=== PATIENT | male | born 1935 | race Caucasian/White ===

== ENCOUNTER 2017-01-04 19:21 | Emergency (ER) | payer MEDICARE ==
[2017-01-04 20:13] VITALS: BP 129/70
--- NOTE | 2017-01-04 20:41 | UC ---
Truncal Trauma HPI - HPI Summary HPI Summary: fall today when running up the driveway to get out of the rain, x 2 hours ago. He has pain in the left ribs with inspiration, elbow abrasion, soreness in back and ribs. Given ibuprofen by his , 600mg (generally avoids due to coumadin) . - History Of Current Complaint Chief Complaint: UCUpperExtremity Stated Complaint: FALL-LFT ELBOW/POSS RIB INJURY Time Seen by Provider: 01/04/17 20:26 Hx Obtained From: Patient, Family/Sanitor - here with his . 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 Cardiovascular: Other - controlled a fib, regular checks of inr with Dr. Lambert. Neurological: Negative All Other Systems Reviewed And Are Negative: Yes Physical Exam Triage Information Reviewed: Yes Appearance: Pain Distress - mild to moderate; antalgic gait, Obese Vital Signs: Initial Vital Signs Temp 98.2 F 01/04/17 20:04 Pulse 70 01/04/17 20:04 Resp 18 01/04/17 20:04 BP 129/70 01/04/17 20:04 Pulse Ox 99 01/04/17 20:04 Vital Signs Reviewed: Yes Eyes: Positive: Conjunctiva Clear ENT: Positive: Pharynx normal Neck: Positive: Supple, Nontender Respiratory: Positive: Lungs clear, Normal breath sounds Cardiovascular: Positive: RRR, No Murmur Abdominal Exam: Other - obese abdominal wall Abdomen Description: Positive: Soft Bowel Sounds: Positive: Present Musculoskeletal: Positive: ROM Intact, Other: - has right wrist nodule (chronic) --full rom. Tender in left rib cage, ribs 8 and 9, in the mid clavicular line. Neurological: Positive: Alert, Muscle Tone Normal Psychological Exam: Other - memory impairment, defers to his spouse to respond to questions. Skin Exam: Other - ecchymosis right forearm (old) Diagnostics - Laboratory Diagnostic Studies Completed/Ordered: rib views negative for fracture per MH; will review radiology read. Re-Evaluation - Re-Evaluation First Eval Re-Evaluation Time: 21:30 - smiling and chatting, no acute distress Change: Unchanged Truncal Trauma Course/Dx - Course Course Of Treatment: acetaminophen for pain, observation. - Differential Dx/Diagnosis Differential Diagnosis/HQI/PQRI: Chest Wall Contusion, Rib Fracture, Other - abrasions Provider Diagnoses: chest wall contusion. left elbow abrasion. Discharge - Discharge Plan Condition: Stable Disposition: HOME Patient Education Materials: Contusion in Adults (ED) Additional Instructions: Observe for any increasing pain or breathlessness. If these develop, please go to the emergency room Use acetaminophen for pain, 1000mg ever 8 hours as needed. Be cautious with additional ibuprofen due to the use of coumadin--it gives an increased bleeding risk.
--- NOTE | 2017-01-04 21:54 | RAD ---
Indication: Left rib pain. 3 views of left ribs demonstrates no fracture. No other bone or joint abnormality is identified. IMPRESSION: No fracture of the left ribs is noted.
== END 2017-01-04 21:58 | disposition home or self-care (01) ==
LOC: UCCORT 19:21
DX: S20.219A Contusion of unspecified front wall of thorax, initial encounter (principal); S50.312A Abrasion of left elbow, initial encounter; W18.30XA Fall on same level, unspecified, initial encounter; Y93.02 Activity, running; Y92.412 Parkway as the place of occurrence of the external cause; R73.03 Prediabetes; I10 Essential (primary) hypertension; I48.91 Unspecified atrial fibrillation; Z79.01 Long term (current) use of anticoagulants; Z96.651 Presence of right artificial knee joint; E66.9 Obesity, unspecified
CPT/HCPCS: 99212; G0463

== ENCOUNTER 2017-12-22 13:13 | Emergency (ER) | payer MEDICARE ==
[2017-12-22 14:28] VITALS: BP 132/81
--- NOTE | 2017-12-22 15:16 | UC ---
Respiratory Complaint HPI - HPI Summary HPI Summary: Cough x 4 days with wheezing. Congestion and low grade fever. - History of Current Complaint Chief Complaint: UCRespiratory Stated Complaint: COUGH Time Seen by Provider: 12/22/17 15:08 Hx Obtained From: Patient Onset/Duration: Sudden Onset, Lasting Days - 4, Still Present Timing: Constant Severity Initially: Moderate Severity Currently: Moderate Pain Intensity: 0 Character: Cough: Nonproductive Aggravating Factors: Deep Breaths, Recumbent Position Alleviating Factors: Nothing Associated Signs And Symptoms: Positive: Wheezing, URI, Nasal Congestion, Hoarseness. Negative: Fever, Sinus Discomfort - Allergies/Home Medications Allergies/Adverse Reactions: Allergies Allergy/AdvReac Type Severity Reaction Status Date / Time No Known Allergies Allergy Verified 12/22/17 14:30 Home Medications: Home Medications Antidiabetic Med 1 tab PO QAM 12/22/17 [History Confirmed 12/22/17] Med For Memory 2 tab PO QPM 12/22/17 [History Confirmed 12/22/17] PMH/Surg Hx/FS Hx/Imm Hx Endocrine History: Dyslipidemia Cardiovascular History: Hypertension, Atrial Fibrillation - Surgical History Surgical History: Yes Surgery Procedure, Year, and Place: hernia abdomen, right knee replacement - Family History Known Family History: Negative: Cardiac Disease, Diabetes - Social History Occupation: Retired Lives: With Family Alcohol Use: Rare Substance Use Type: None Smoking Status (MU): Never Smoked Tobacco Have You Smoked in the Last Year: No Review of Systems Respiratory: Shortness Of Breath, Cough Is Patient Immunocompromised?: No All Other Systems Reviewed And Are Negative: Yes Physical Exam Triage Information Reviewed: Yes Appearance: No Pain Distress, Well-Nourished, Ill-Appearing - mild Vital Signs: Initial Vital Signs Temp 99.2 F 12/22/17 14:21 Pulse 75 12/22/17 14:21 Resp 18 12/22/17 14:21 BP 132/81 12/22/17 14:21 Pulse Ox 98 12/22/17 14:21 Vital Signs Reviewed: Yes Eyes: Positive: Conjunctiva Clear ENT: Positive: Pharynx normal, TMs normal Neck exam: Normal Respiratory: Positive: Wheezing - expiratory wheeze with forced expiration. Cardiovascular Exam: Normal Musculoskeletal: Positive: Strength Limited @ - with walking, antalgic gait Neurological Exam: Normal Psychological Exam: Normal Skin Exam: Normal UC Diagnostic Evaluation - Laboratory O2 Sat by Pulse Oximetry: 98 Respiratory Course/Dx - Differential Dx/Diagnosis Differential Diagnosis/HQI/PQRI: Asthma, Lower Resp Infection, Sinusitis Provider Diagnoses: Acute URI. Acute bronchospasm Discharge - Sign-Out/Discharge Documenting (check all that apply): Discharge/Admit/Transfer - Discharge Plan Condition: Stable Disposition: HOME Prescriptions: predniSONE TAB* [Deltasone TAB*] 20 mg PO DAILY #18 tab Patient Education Materials: Upper Respiratory Infection (ED), Wheezing (ED), Prednisone (By mouth) Referrals: Corona Rosenberg MD [Primary Care Provider] - - Billing Disposition and Condition Condition: STABLE Disposition: HOME
== END 2017-12-22 15:50 | disposition home or self-care (01) ==
LOC: UCCORT 13:13
DX: J06.9 Acute upper respiratory infection, unspecified (principal); J98.01 Acute bronchospasm
CPT/HCPCS: 99212; G0463

== ENCOUNTER 2019-08-05 16:44 | Emergency (ER) | payer MEDICARE ==
--- NOTE | 2019-08-05 17:12 | UC ---
Respiratory Complaint HPI - HPI Summary HPI Summary: 84 yo man with dementia and atrial fibrillation, comes accompanied by his who states that he has been unwell for 2 days. On evening of 08/04 he had epigastric discomfort and "indigestion", with heaving and vomiting of phlegm. Yesterday he slept most of the day with minimal intake, but this morning got up and ate a light breakfast. Within the hour, he developed right sided pain in the flank without radiation, without associated gi symptoms. Noted on admission to have a fever, with tachycardia and tachypnea. Onset of time of fever is uncertain. No hx of injury. Although he typically walks with a cane, his found him difficulty to move today, and on arrival here wheelchair assistance was needed. - History of Current Complaint Stated Complaint: RIGHT ABDOMINAL PAIN/SOB Time Seen by Provider: 08/05/19 16:54 Hx Obtained From: Patient, Family/Americanization Teacher - here with his Onset/Duration: Gradual Onset, Lasting Days - 2 Severity Initially: Mild Severity Currently: Moderate Character: Cough: Productive - chronic cough and expectoration, with increased cough over the course of today Aggravating Factors: Exertion - decreased activity - Allergies/Home Medications Allergies/Adverse Reactions: Allergies Allergy/AdvReac Type Severity Reaction Status Date / Time No Known Allergies Allergy Verified 12/22/17 14:30 Home Medications: Home Medications Atorvastatin* [Lipitor*] 10 mg PO DAILY 08/05/19 [History Confirmed 08/05/19] Donepezil TAB* [Aricept 5 MG TAB*] 10 mg PO DAILY 08/05/19 [History Confirmed ] Finasteride TAB* [Proscar TAB*] 5 mg PO DAILY 08/05/19 [History Confirmed ] Glimepiride [Amaryl] 1 mg PO DAILY 08/05/19 [History Confirmed 08/05/19] Losartan TAB* [Cozaar TAB*] 25 mg PO DAILY 08/05/19 [History Confirmed 08/05/19] Memantine TAB* [Namenda TAB*] 10 mg PO DAILY 08/05/19 [History Confirmed ] PMH/Surg Hx/FS Hx/Imm Hx Endocrine History: Diabetes Cardiovascular History: Atrial Fibrillation GI/ History: Other - prostitc hypertrophy - Surgical History Surgical History: Yes Surgery Procedure, Year, and Place: hernia abdomen, right knee replacement - Family History Known Family History: Positive: Unknown - unable to give due to memory Negative: Cardiac Disease, Diabetes - Social History Occupation: Retired Lives: With Family Alcohol Use: Rare Substance Use Type: None Smoking Status (MU): Never Smoked Tobacco Have You Smoked in the Last Year: No Review of Systems All Other Systems Reviewed And Are Negative: Yes Constitutional: Positive: Fever, Fatigue Skin: Positive: Negative Eyes: Positive: Negative ENT: Positive: Negative Respiratory: Positive: Shortness Of Breath, Cough Cardiovascular: Positive: Chest Pain - ? pain in the right flank and lower rib area Gastrointestinal: Positive: Abdominal Pain, Nausea Genitourinary: Positive: Other - hx of BPH Motor: Positive: Weakness Neurovascular: Positive: Negative Musculoskeletal: Positive: Negative Neurological: Positive: Weakness. Negative: Headache Psychological: Positive: Negative Is Patient Immunocompromised?: No Physical Exam Triage Information Reviewed: Yes Appearance: Ill-Appearing - elderly man, alert, answers some questions briefly. Audible wheeze, Pain Distress - mild, Obese, Other: - No jaundice Eye Exam: Normal ENT: Positive: Pharynx normal Neck: Positive: Supple, Nontender, No Lymphadenopathy Respiratory: Positive: Respiratory distress - tachypneic, Decreased breath sounds - bilaterally. Negative: Crackles, Rhonchi, Wheezing Cardiovascular: Positive: No Murmur, Tachycardia Abdominal Exam: Other - distended abdome Abdomen Description: Positive: Soft, Distended. Negative: CVA Tenderness (R), CVA Tenderness (L) Bowel Sounds: Positive: Hypoactive Male Genital Exam: Positive: Other - right groin with erythematous rash/ intertrigo Musculoskeletal Exam: Other - poor sitting balance. Musculoskeletal: Positive: ROM Intact, No Edema Neurological: Positive: Alert, Muscle Tone Normal Psychological Exam: Other - answers questions briefly/vague Skin: Positive: Rashes - right groin Respiratory Course/Dx - Course Course Of Treatment: Transferred to [facility] for evaluation of possible sepsis, gallbladder disease, pneumonia etc. - Differential Dx/Diagnosis Differential Diagnosis/HQI/PQRI: CHF, Influenza, Lower Resp Infection, Pulmonary Embolism Provider Diagnosis: Fever - Physician Notification/Consults Discussed Patient Care With: Liss Farrell Time Discussed With Above Provider: 17:15 Discharge ED - Sign-Out/Discharge Documenting (check all that apply): Patient Departure All imaging exams completed and their final reports reviewed: No Studies - Discharge Plan Condition: Stable Disposition: TRANS HIGHER LVL OF CARE FAC Referrals: Corona Rosenberg MD [Primary Care Provider] - - Billing Disposition and Condition Condition: STABLE Disposition: Trans Higher Lvl of Care Fac
[2019-08-05 17:21] VITALS: BP 121/48
== END 2019-08-05 17:32 | disposition short-term general hospital (02) ==
LOC: UCCORT 16:44
DX: R50.9 Fever, unspecified (principal); E66.9 Obesity, unspecified; R21 Rash and other nonspecific skin eruption; E11.9 Type 2 diabetes mellitus without complications; R06.02 Shortness of breath; R05 Cough; R10.13 Epigastric pain; R53.1 Weakness; Z79.84 Long term (current) use of oral hypoglycemic drugs
CPT/HCPCS: 93005; 99213; G0463